=== PATIENT | female | born 1960 | race Caucasian/White ===

== ENCOUNTER 2016-06-28 11:18 | Day surgery (SDC) | payer OTHER ==
[~2016-06-28] VITALS: Ht 161.3 cm; Wt 58.1 kg
[~2016-06-28 11:18] MED LIST: 0.9% Sodium Chloride 1,000 ML IV SCH; ESTR0.5T VAGINAL; MINO50TA PO; Sodium Chloride LOK Flush 10 mL Syringe IV PRN; fentaNYL-PF 50 mCg/mL 2 mL Inj IVPUSH PRN
[2016-06-28 11:40] VITALS: BP 113/70; PULSE 73; RESP 17; O2SAT 97
[2016-06-28 12:20] VITALS: BP 103/64; PULSE 68; O2SAT 98
[2016-06-28 12:30] VITALS: BP 98/66; PULSE 75; O2SAT 98
--- NOTE | 2016-06-28 13:37 | ENDO ---
[address] [id number] ENDOSCOPY PROCEDURE PATIENT: ANNA LAURA : 1960 MR#: [id number] ADMIT: 06/28/2016 JOB ID: [id number] PROCEDURE: Colonoscopy. INDICATION: Screening. ANESTHESIA: Patient's ASA classification is two. Mallampati score is two. MEDICATIONS: 1. Versed 4 mg. 2. Fentanyl 100 mcg. INSTRUMENT USED: PCF H 180 AL. PREPARATION QUALITY: Good. PROCEDURE DETAILS: After informed consent was obtained, the patient was brought into the GI suite, where she was placed on oxygen via nasal cannula and monitored with continuous pulse oximeter, telemetry, and blood pressure monitoring. A time-out was performed, then she was placed in the left lateral decubitus position and medications were administered for sedation. Digital rectal exam was performed, which was unremarkable. The colonoscope was then inserted into the rectum and advanced under direct visualization to the cecum, which was identified by the presence of the ileocecal valve and appendiceal orifice. Once the cecum was reached, the colonoscope was withdrawn back into the rectum. The mucosa and lumen were examined. In the rectum, retroflexion was performed. Following retroflexion, the remaining air in the rectum was suctioned and the procedure was completed. FINDINGS: Scattered diverticula were seen throughout the sigmoid colon. Otherwise normal exam from rectum to cecum. IMPRESSION: Sigmoid diverticulosis. RECOMMENDATIONS: 1. Repeat colonoscopy in 10 years, sooner if symptoms should dictate. 2. Fiber rich diet. COMPLICATIONS: None. ESTIMATED BLOOD LOSS: Zero.
== END 2016-06-28 23:59 | disposition home or self-care (01) ==
LOC: END 11:18
PROVIDERS: ATTEND Internal Medicine Gastroenterology
DX: Z12.11 Encounter for screening for malignant neoplasm of colon (principal); K57.32 Diverticulitis of large intestine without perforation or abscess without bleeding
CPT/HCPCS: G0121; J2250; J7030